=== PATIENT | female | born 1945 | race Hispanic/Latino ===

== ENCOUNTER 2018-01-04 10:03 | Emergency (ER) | payer MEDICARE, OTHER ==
[2018-01-04] MEDS ORDERED: NACL 0.9% 1000 ML 1,000 ML IV ONE (13:32)
--- NOTE | 2018-01-04 13:38 | Emergency Department Report ---
ED Abdominal Pain HPI - General Chief Complaint: Abdominal Pain Stated Complaint: ABDOMINAL PAIN Time Seen by Provider: 01/04/18 13:22 Source: patient Mode of arrival: Wheelchair Limitations: No Limitations - History of Present Illness Initial Comments: 72-year-old female with a past medical history of COPD, previous CVA with residual right-sided deficits and dysarthria present. Hospital with complaints of abdominal pain 1 week. She has been treated by her primary care doctor. She had vaginal discharge and finish her course of antibiotics 2 weeks ago. He was then put on Levaquin 7 days with last dose yesterday. Patient had outpatient CT scan performed by her primary care doctor 12-02 results: Changes within the rectum suggesting colitis. Rectal wall thickening and possible and probable pneumatosis is present. Massive eggeshell calcification in the right uterus and an air fluid is noted. There is a break in actual calcification on the left side and there is a small amount here in the endometrial cavity suggesting fistulization. This could represent a degenerative fibroid. Infarcted fibroid and/or infected fibroids are not excluded. Patient had labs performed on 214 showed a white count of 14 Patient has been having intermittent fevers and continued lower abdominal pain despite antibiotic treatment. Due to patient's stroke she has difficulty communicating pain quality. Decreased appetite reported without vomiting. Dr. Nuñez (pmd) advised the patient come to the ER for treatment. - Related Data Previous Rx's Medication Instructions Recorded Last Taken Type Amoxicillin/Potassium Clav 1 each PO BID #7 tablet 01/04/18 Unknown Rx [Augmentin 875-125 Tablet] Mineral Oil [Fleet Mineral Oil] 133 ml TX DAILY #2 bottle 01/04/18 Unknown Rx metroNIDAZOLE [Flagyl] 500 mg PO Q8HR #7 tablet 01/04/18 Unknown Rx Allergies Allergy/AdvReac Type Severity Reaction Status Date / Time No Known Allergies Allergy Unverified 01/04/18 10:06 ED Review of Systems ROS: Stated complaint: ABDOMINAL PAIN Other details as noted in HPI Comment: All other systems reviewed and negative Other: Constitutional: Positive fevers Eyes: No eye pain visual changes ENT: No ear pain or throat pain Neck: Denies pain Respiratory: Denies cough wheezing shortness of breath Cardiovascular: Denies chest pain, palpitations, syncope GI: As per HPI : Denies dysuria. Positive discharge Musculoskeletal: Denies back pain Skin: Denies rash, lesions, erythema Neurologic: Denies headache, numbness, weakness Psychiatric: Denies suicidal ideation, hallucinations ED Past Medical Hx - Past Medical History Hx CVA: Yes Hx COPD: Yes - Surgical History Additional Surgical History: hip replacement - Social History Smoking Status: Never Smoker Substance Use Type: None - Medications Home Medications: Home Medications Medication Instructions Recorded Confirmed Last Taken Type Amoxicillin/Potassium Clav 1 each PO BID #7 tablet 01/04/18 Unknown Rx [Augmentin 875-125 Tablet] Mineral Oil [Fleet Mineral Oil] 133 ml TX DAILY #2 bottle 01/04/18 Unknown Rx metroNIDAZOLE [Flagyl] 500 mg PO Q8HR #7 tablet 01/04/18 Unknown Rx ED Physical Exam - General Limitations: No Limitations - Other Other exam information: General: No acute distress Head exam: Atraumatic, normocephalic Eyes exam: Normal appearance ENT: Moist mucous membrane, normal oropharynx Neck exam: Normal inspection, full range of motion, no meningismus nontender Respiratory exam: Clear to auscultation bilateral, no wheezes, rales, crackles Cardiovascular: Normal rate and rhythm, normal heart sounds Abdomen: Soft, nondistended, generalized abdominal tenderness on exam greatest in the lower abdomen Extremity: Full range of motion normal inspection no deformity Back: Normal Inspection, full range of motion, no tenderness Neurologic: Alert, right-sided deficit, dysarthria, right-sided weakness chronic compared to left from previous CVA Psychiatric: normal affect, normal mood Skin: Warm, dry, intact ED Course Vital Signs 01/04/18 01/04/18 01/04/18 10:06 13:39 13:43 Temperature 97.9 F 98.6 F Pulse Rate 77 84 Pulse Rate [ Anterior Throughout] Respiratory 20 15 Rate Respiratory Rate [Anterior Throughout] Blood Pressure 120/56 129/63 Blood Pressure [Right] O2 Sat by Pulse 96 98 Oximetry 01/04/18 01/04/18 01/04/18 15:30 17:27 17:34 Temperature Pulse Rate 75 Pulse Rate [ 93 H 92 H Anterior Throughout] Respiratory 22 Rate Respiratory 18 18 Rate [Anterior Throughout] Blood Pressure Blood Pressure 119/58 [Right] O2 Sat by Pulse 96 Oximetry - Reevaluation(s) Reevaluation #1: 01/04/18 18:39 Patient remained stable in the ED. Received IV fluids, Zofran, and by mouth Flagyl - Consultations Consultation #1: 01/04/18 14:05 Dr. Gan surgery search engine optimization strategist came to the ER and recommends rectal contrast and IV contrast CT abdomen and pelvis 01/04/18 18:38 At the [facility] discussed case with patient and family at the CT review in no acute surgical issue at this time. Please refer to his note Consultation #2: 01/04/18 18:[address] Hancock with [employer] [employer] [employer]. Recommend Flagyl and outpatient follow- up early next week. ED Medical Decision Making - Lab Data Result diagrams: 01/04/18 14:01 01/04/18 14:01 Lab Results 01/04/18 01/04/18 01/04/18 Range/Units 14:01 14:01 14:01 WBC 11.6 H (4.5-11.0) K/mm3 RBC 3.70 (3.65-5.03) M/mm3 Hgb 10.7 (10.1-14.3) gm/dl Hct 31.5 (30.3-42.9) % MCV 85 (79-97) fl MCH 29 (28-32) pg MCHC 34 (30-34) % RDW 13.9 (13.2-15.2) % Plt Count 617 H (140-440) K/mm3 Lymph % (Auto) 18.0 (13.4-35.0) % [place] % (Auto) 7.7 H (0.0-7.3) % Eos % (Auto) 1.8 (0.0-4.3) % Baso % (Auto) 0.8 (0.0-1.8) % Lymph # 2.1 (1.2-5.4) K/mm3 [place] # 0.9 H (0.0-0.8) K/mm3 Eos # 0.2 (0.0-0.4) K/mm3 Baso # 0.1 (0.0-0.1) K/mm3 Seg Neutrophils % 71.7 H (40.0-70.0) % Seg Neutrophils # 8.3 H (1.8-7.7) K/mm3 PT 13.7 (12.2-14.9) Sec. INR 1.00 (0.87-1.13) APTT 32.4 (24.2-36.6) Sec. Sodium 143 (137-145) mmol/L Potassium 4.1 (3.6-5.0) mmol/L Chloride 100.1 (98-107) mmol/L Carbon Dioxide 24 (22-30) mmol/L Anion Gap 23 mmol/L BUN 12 (7-17) mg/dL Creatinine 0.6 L (0.7-1.2) mg/dL Estimated GFR > 60 ml/min BUN/Creatinine Ratio 20 % Glucose 97 (65-100) mg/dL Calcium 9.6 (8.4-10.2) mg/dL Total Bilirubin 0.30 (0.1-1.2) mg/dL AST 9 (5-40) units/L ALT 15 (7-56) units/L Alkaline Phosphatase 101 (35-129) units/L Total Protein 7.1 (6.3-8.2) g/dL Albumin 3.3 L (3.9-5) g/dL Albumin/Globulin Ratio 0.9 % Blood Type Antibody Screen 01/04/18 Range/Units 14:01 WBC (4.5-11.0) K/mm3 RBC (3.65-5.03) M/mm3 Hgb (10.1-14.3) gm/dl Hct (30.3-42.9) % MCV (79-97) fl MCH (28-32) pg MCHC (30-34) % RDW (13.2-15.2) % Plt Count (140-440) K/mm3 Lymph % (Auto) (13.4-35.0) % [place] % (Auto) (0.0-7.3) % Eos % (Auto) (0.0-4.3) % Baso % (Auto) (0.0-1.8) % Lymph # (1.2-5.4) K/mm3 [place] # (0.0-0.8) K/mm3 Eos # (0.0-0.4) K/mm3 Baso # (0.0-0.1) K/mm3 Seg Neutrophils % (40.0-70.0) % Seg Neutrophils # (1.8-7.7) K/mm3 PT (12.2-14.9) Sec. INR (0.87-1.13) APTT (24.2-36.6) Sec. Sodium (137-145) mmol/L Potassium (3.6-5.0) mmol/L Chloride (98-107) mmol/L Carbon Dioxide (22-30) mmol/L Anion Gap mmol/L BUN (7-17) mg/dL Creatinine (0.7-1.2) mg/dL Estimated GFR ml/min BUN/Creatinine Ratio % Glucose (65-100) mg/dL Calcium (8.4-10.2) mg/dL Total Bilirubin (0.1-1.2) mg/dL AST (5-40) units/L ALT (7-56) units/L Alkaline Phosphatase (35-129) units/L Total Protein (6.3-8.2) g/dL Albumin (3.9-5) g/dL Albumin/Globulin Ratio % Blood Type A POSITIVE Antibody Screen Negative - Radiology Data Radiology results: report reviewed CT abd and a pelvis with IV and rectal contrast: Descending and sigmoid diverticulosis with suggestion of small focus of diverticulitis in the proximal sigmoid colon. Atypical mass in the upper right ureter is thought to represent a fibroid but contains gas and fluid. May be secondary to infection or abscess formation within a fibroid. Nonspecific distention of the common bile duct with 11 mm diameter. Moderate hiatal hernia.. Rectal tube in place and adjacent primary feces distended rectum - Medical Decision Making Plan to discharge patient home after review of CT scan today and discussion with surgery and [employer] search engine optimization strategist. Patient will be prescribed Flagyl and Augmentin for uterus findings on CT and mild diverticulitis. - Differential Diagnosis diverticulitis, appendicitis, colitis, fistula Critical Care Time: No Critical care attestation.: If time is entered above; I have spent that time in minutes in the direct care of this critically ill patient, excluding procedure time. ED Disposition Clinical Impression: Fecal impaction in rectum, Uterine mass, Diverticulitis Disposition: TO HOME OR SELFCARE Is pt being admited?: No Does the pt Need Aspirin: No Condition: Stable Instructions: Fecal Impaction (ED), Uterine Fibroids (ED), Diverticulitis (ED) Additional Instructions: Take the medication as prescribed. Return if symptoms worsen. Follow up with the [employer] [employer] doctor Sunday or Sunday of this week. Prescriptions: Amoxicillin/Potassium Clav [Augmentin 875-125 Tablet] 1 each PO BID #7 tablet metroNIDAZOLE [Flagyl] 500 mg PO Q8HR #7 tablet Mineral Oil [Fleet Mineral Oil] 133 ml TX DAILY #2 bottle Referrals: CEDRIC HANCOCK MD [Staff Physician] - 2-3 Days Time of Disposition: 18:57
[2018-01-04 14:33] LABS: Basophils # (Auto) 0.1 K/mm3 (0.0-0.1); Basophils % (Auto) 0.8 % (0.0-1.8); Eosinophils # (Auto) 0.2 K/mm3 (0.0-0.4); Eosinophils % (Auto) 1.8 % (0.0-4.3); Hematocrit 31.5 % (30.3-42.9); Hemoglobin 10.7 gm/dl (10.1-14.3); Lymphocytes # (Auto) 2.1 K/mm3 (1.2-5.4); Mean Corpuscular HGB Conc 34 % (30-34); Mean Corpuscular Hemoglobin 29 pg (28-32); Mean Corpuscular Volume 85 fl (79-97); Monocytes # (Auto) 0.9 K/mm3 (0.0-0.8); Monocytes % (Auto) 7.7 % (0.0-7.3); Platelet Count 617 K/mm3 (140-440); Red Cell Distribution Width 13.9 % (13.2-15.2)
[2018-01-04 14:58] LABS: Partial Thromboplastin Time 32.4 Sec. (24.2-36.6)
[2018-01-04 15:00] LABS: Alanine Aminotransferase 15 units/L (7-56); Albumin 3.3 g/dL (3.9-5); BUN/Creatinine Ratio 20; Blood Urea Nitrogen 12 mg/dL (7-17); Calcium 9.6 mg/dL (8.4-10.2); Hemolysis Index 4
[2018-01-04] MEDS ORDERED: ZOSYN/NS 4.5GM/100ML 4.5 GM/100 ML VIAL IV SCH ×2 (15:00→18:30)
[2018-01-04] MEDS ORDERED: DUONEB *Not for PRN Use IH ONE (17:15)
--- NOTE | 2018-01-04 17:29 | Cat Scan Report ---
FINAL REPORT EXAM: CT ABDOMEN PELVIS W CON HISTORY: lower abd pain, ? colitis? pneumatosis ? fistula TECHNIQUE: CT examination of the ABDOMEN after IV contrast CT examination of the PELVIS after IV contrast PRIORS: None. FINDINGS: Degenerative change in the regional skeleton. Lumbar curvature with mid left apex. Healed right rib fractures. Right hip arthroplasty. Metal artifact limits examination. Patient arm in the diagnostic [id number] degrades image quality and limits the examination. Healed fracture of left inferior pubic ramus. Normal-appearing liver, gallbladder, adrenals, pancreas, and spleen. Normal caliber abdominal aorta with severe calcified atherosclerotic plaque normal caliber IVC. No retroperitoneal adenopathy. No definite mesenteric mass. Small benign-appearing right renal cyst. Otherwise normal-appearing kidneys and visible ureteral segments. Nonspecific distention of the common bile duct with 11 mm diameter. The no CT evidence of ductal filling defect. Moderate hiatal hernia. Otherwise normal appearing stomach and duodenum. No small bowel distention in the abdomen and pelvis. No pelvic free fluid. Normal-appearing visible portion of urinary bladder, partly obscured by metal artifact. Rectal tube in place. Rectum distended with feces. The uterus is enlarged with rim calcified nonspecific mass in the right upper portion. This is suggestive of a large fibroid. Mass, however, is atypical containing gas and fluid level. This may reflect secondary infection of fibroid. Maximum lesion size is 5.9 cm. There is slight descending colon and moderate to severe sigmoid colon diverticulosis. In the proximal sigmoid colon, there is slight mural thickening with adjacent fat stranding. This is suspicious for a small focus of diverticulitis. No CT evidence of perforation or diverticular abscess. No gross ascites, free air, or colonic distention. Normal-appearing cecum and terminal ileum. Appendix not separately identified. No pericecal inflammation IMPRESSION: Descending and sigmoid diverticulosis with suggestion of small focus of diverticulitis in the proximal sigmoid colon Atypical mass in the upper right uterus thought to represent fibroid but contains gas and fluid. This may be secondary infection or abscess formation within a fibroid Nonspecific distention of the common bile duct with 11 mm diameter Moderate hiatal hernia Rectal tube in place with adjacent prominent feces and distended rectum
--- NOTE | 2018-01-04 17:39 | Consultation ---
History of Present Illness Consult date: 01/04/18 Reason for consult: abdominal pain Requesting physician: KARLEE HORNE Chief complaint: recurrent vaginal discharge - History of present illness History of present illness: 72yo F with recent history of a stroke (unable to communicate very much) was found to have a vaginal discharge over the last 2 weeks that appeared like mucus and occasionally white. Did not have a distinct feculent appearance or smell. Came to ED today due to concerning CT results done on 01/02. Family was told that she had "a tear in the intestine and gangrene in the tissues". Family and laboratory animal care veterinarian report that she has had recurrent vaginal drainage that was evaluated by the PCP and treated with abx (3 different rounds). She has had low grade fevers, but no higher than 100.8. Appetite seems to be slightly decreased. Has been having normal BMs without signs of discharge, change in consistency, bleeding, or blackness. Seems to be more tired as well. Has not been showing signs to family of severe or persistent abdominal pain. Past History Past Medical History: COPD, stroke (2016 - left with significant disability) Past Surgical History: total hip replacement (right) Social history: lives with family (and uses home health). denies: smoking, alcohol abuse Family history: no significant family history Medications and Allergies Allergies Allergy/AdvReac Type Severity Reaction Status Date / Time No Known Allergies Allergy Unverified 01/04/18 10:06 Active Meds: Active Medications Sodium Chloride (Nacl 0.9% 1000 Ml) 1,000 mls @ 125 mls/hr IV ONCE ONE Stop: 01/04/18 21:31 Last Admin: 01/04/18 14:11 Dose: 125 mls/hr Piperacillin Sod/Tazobactam Sod (Zosyn/Ns 4.5gm/100ml) 4.5 gm in 100 mls @ 200 mls/hr IV ONCE SERAFIN Stop: 01/04/18 18:00 Review of Systems ROS unobtainable: due to mental status Exam Vital Signs Temp Pulse Resp BP Pulse Ox 97.9 F 77 20 120/56 96 01/04/18 10:06 01/04/18 10:06 01/04/18 10:06 01/04/18 10:06 01/04/18 10:06 - General physical appearance Positive: no distress, no pain, other (appears well. Not septic in appearance. Appears comfortable.) - Respiratory Positive: normal expansion, normal respiratory effort, other (coarse BS bilaterally, right>left) - Cardiovascular Rhythm: regular - Breasts Breasts: deferred - Abdomen Abdomen: Present: soft, bowel sounds normal. Absent: tender, distended, guarding, rigid, surgical scars - Genitourinary Female Genitourinary: deferred - Psychiatric Psychiatric: cooperative Results - Labs 01/04/18 14:01 01/04/18 14:01 Abnormal lab results 01/04/18 01/04/18 Range/Units 14:01 14:01 WBC 11.6 H (4.5-11.0) K/mm3 Plt Count 617 H (140-440) K/mm3 [place] % (Auto) 7.7 H (0.0-7.3) % [place] # 0.9 H (0.0-0.8) K/mm3 Seg Neutrophils % 71.7 H (40.0-70.0) % Seg Neutrophils # 8.3 H (1.8-7.7) K/mm3 Creatinine 0.6 L (0.7-1.2) mg/dL Albumin 3.3 L (3.9-5) g/dL Diabetes panel 01/04/18 Range/Units 14:01 Sodium 143 (137-145) mmol/L Potassium 4.1 (3.6-5.0) mmol/L Chloride 100.1 (98-107) mmol/L Carbon Dioxide 24 (22-30) mmol/L BUN 12 (7-17) mg/dL Creatinine 0.6 L (0.7-1.2) mg/dL Glucose 97 (65-100) mg/dL Calcium 9.6 (8.4-10.2) mg/dL AST 9 (5-40) units/L ALT 15 (7-56) units/L Alkaline Phosphatase 101 (35-129) units/L Total Protein 7.1 (6.3-8.2) g/dL Albumin 3.3 L (3.9-5) g/dL Calcium panel 01/04/18 Range/Units 14:01 Calcium 9.6 (8.4-10.2) mg/dL Albumin 3.3 L (3.9-5) g/dL Pituitary panel 01/04/18 Range/Units 14:01 Sodium 143 (137-145) mmol/L Potassium 4.1 (3.6-5.0) mmol/L Chloride 100.1 (98-107) mmol/L Carbon Dioxide 24 (22-30) mmol/L BUN 12 (7-17) mg/dL Creatinine 0.6 L (0.7-1.2) mg/dL Glucose 97 (65-100) mg/dL Calcium 9.6 (8.4-10.2) mg/dL Adrenal panel 01/04/18 Range/Units 14:01 Sodium 143 (137-145) mmol/L Potassium 4.1 (3.6-5.0) mmol/L Chloride 100.1 (98-107) mmol/L Carbon Dioxide 24 (22-30) mmol/L BUN 12 (7-17) mg/dL Creatinine 0.6 L (0.7-1.2) mg/dL Glucose 97 (65-100) mg/dL Calcium 9.6 (8.4-10.2) mg/dL Total Bilirubin 0.30 (0.1-1.2) mg/dL AST 9 (5-40) units/L ALT 15 (7-56) units/L Alkaline Phosphatase 101 (35-129) units/L Total Protein 7.1 (6.3-8.2) g/dL Albumin 3.3 L (3.9-5) g/dL - Imaging CT scan - abdomen: report reviewed, image reviewed Assessment and Plan - Patient Problems (1) Fecal impaction in rectum Current Visit: Yes Status: Acute Plan to address problem: Pt stable. No signs of bowel compromise on exam or CT scan with rectal contrast. The rectal contrast that has been given may resolve the issue. If no large BM, then would try suppository, followed by soap suds enema if suppository not effective. If still not resolved, then may need manual disimpaction. No surgical interventional needed. I doubt there is any significant diverticulitis. However, she probably already covered with all the antibiotics she has had. Had a long conversation with the family about the intestinal portion of this case. There is no indication for emergency surgery. I think the main issue for her is this air/fluid filled uterine (fibroid) mass. I explained to the family that she is at high risk for fecal impaction due to her age, immobility, and medical issues. She may require a daily stool softener, suppository/enema, and/ or digital stimulation to evacuate the rectum. They were appreciative for the help. Time=60min (2) Uterine mass Current Visit: Yes Status: Acute Plan to address problem: Would recommend Recreation Programmer consult.
[2018-01-04] MEDS ORDERED: FLAGYL PO ONE (18:28)
[2018-01-04 20:15] VITALS: BP 139/73
== END 2018-01-04 20:16 | disposition home or self-care (01) ==
LOC: ED 10:03
DX: K56.41 Fecal impaction (principal); K57.92 Diverticulitis of intestine, part unspecified, without perforation or abscess without bleeding; N85.8 Other specified noninflammatory disorders of uterus; J44.9 Chronic obstructive pulmonary disease, unspecified; Z86.73 Personal history of transient ischemic attack (TIA), and cerebral infarction without residual deficits
CPT/HCPCS: 36415; 74177; 80053; 85025; 85610; 85730; 86850; 86900; 86901; 94640; 96361; 96365; 99284; J2543; J7030; Q9967